=== PATIENT | female | born 1945 | race Hispanic/Latino ===

== ENCOUNTER 2017-02-21 09:58 | Emergency (ER) | payer OTHER ==
[2017-02-21 10:10] VITALS: BMI 33.5
[2017-02-21] MEDS ORDERED: DiphenhydrAMINE 50 mg/ml Inj IVP STA (10:43)
[2017-02-21] MEDS ORDERED: MethylPREDNISolone 40 mg Vial IV STA (10:43)
--- NOTE | 2017-02-21 11:03 | ED PDOC ---
Arrival/HPI - General Chief Complaint: Allergic Reaction Time Seen by Provider: 02/21/17 10:27 Historian: Patient - History of Present Illness Narrative History of Present Illness (Text): 02/21/17 11:00 71 yo F w/ pmh of HTN and hypothyroidism reports 3 day h/o red itchy rash, which was initially only in her legs, took a dose of Claritin last night, woke up this morning and developed rash to her upper extremities and her trunk. patient reports receiving the flu shot on February 10, the following day she developed flu-like symptoms without fever for 2 days, which has since resolved, then developed the rash. Patient states in February 2015, after receiving the flu vaccine she had similar rash. Otherwise patient reports (-) throat swelling , (-) tongue / lip swelling, (-) dyspnea, (-) cough, (-) wheezing, (-) abdominal pain, (-) nausea (-) vomiting. The patient has no history of other allergic reactions. PMD Rory Past Medical History - Provider Review Nursing Documentation Reviewed: Yes - Infectious Disease Hx of Infectious Diseases: None - Tetanus Immunization Tetanus Immunization: Unknown - Cardiac Hx Cardiac Disorders: Yes Hx Hypertension: Yes Hx Pacemaker: No - Pulmonary Hx Respiratory Disorders: No - Neurological Hx Neurological Disorder: No Hx Paralysis: No - HEENT Hx HEENT Disorder: No - Renal Hx Renal Disorder: No - Endocrine/Metabolic Hx Endocrine Disorders: Yes Hx Hypothyroidism: Yes - Hematological/Oncological Hx Blood Disorders: Yes Hx Blood Transfusions: No Hx Blood Transfusion Reaction: No Hx Cancer: Yes (right breast.) Other/Comment: radiation - Integumentary Hx Dermatological Disorder: No - Musculoskeletal/Rheumatological Hx Musculoskeletal Disorders: Yes Hx Back Pain: Yes - Gastrointestinal Hx Gastrointestinal Disorders: Yes Hx Gastroesophageal Reflux: Yes - Genitourinary/Gynecological Hx Genitourinary Disorders: No - Psychiatric Hx Psychophysiologic Disorder: Yes Hx Depression: Yes Hx Emotional Abuse: No Hx Physical Abuse: No Hx Substance Use: No - Surgical History Hx Cholecystectomy: Yes Other/Comment: Lumpectomy right breast, - Anesthesia Hx Anesthesia: Yes Hx Anesthesia Reactions: Yes Hx Malignant Hyperthermia: No - Suicidal Assessment Feels Threatened In Home Enviroment: No Family/Social History - Physician Review Nursing Documentation Reviewed: Yes Family/Social History: Unknown Family HX Smoking Status: Never Smoked Hx Alcohol Use: No Hx Substance Use: No Hx Substance Use Treatment: No Allergies/Home Meds Allergies/Adverse Reactions: Allergies Penicillins Allergy (Mild, Verified 02/21/17 10:10) RASH Home Medications: Home Meds Medication Instructions Recorded Confirmed Lisinopril 10 mg PO DAILY 04/10/13 02/21/17 Levothyroxine Sodium [Synthroid] 20 mcg PO QAM 07/25/14 02/21/17 Multivitamin and Npxumlna08 1 tab PO DAILY 09/26/14 02/21/17 [Centrum Silver] Escitalopram [Lexapro] 10 mg PO DAILY 02/21/17 02/21/17 Gluc/Alex-MSM#2/C/D3/Abdoulaye/Born 1 tab PO DAILY 02/21/17 02/21/17 [Idwbmitnif-Geudeajtktd-APL Tab] Review of Systems - Review of Systems Constitutional: Normal. absent: Fatigue, Weight Change, Fevers ENT: Normal. absent: Sore Throat, Rhinorrhea, Sinus Congestion Respiratory: Normal. absent: SOB, Cough, Sputum Musculoskeletal: Normal. absent: Arthralgias, Back Pain, Neck Pain Skin: Normal, Rash. absent: Pruritis, Skin Lesions Physical Exam - Physical Exam Narrative Physical Exam (Text): 02/21/17 11:05 GENERAL APPEARANCE: Patient is awake, alert, oriented x 3, in no acute distress. SKIN: (+) diffuse scattered erythematous papular rash to the trunk and all extremities sparing the palms and soles. Otherwise (-) excoriations, (-) drainage, (-) crusting of lesions is present. HENT: (-) conjunctival injection, (-) chemosis. Oropharynx: clear (-) tongue or lip swelling, (-) tonsillar exudates, (-) erythema. Airway: patent (-) stridor, (-) hoarseness. Mucous membranes moist. Nares: Patent (-) rhinorrhea. NECK: (-) lymphadenopathy, (-) tenderness. CARDIOVASCULAR: Normal rate and rhythm. (-) murmur, (-) gallop. CHEST: (-) rales, (-) wheezing, (-) dyspnea, (-) stridor. Breath sounds equal bilaterally. ABDOMEN: Soft. (-) tenderness, (-) distention, (-) HSM. NEURO: Mental status: Patient is alert, oriented, and with normal strength and tone. Vital Signs Temp Pulse Resp BP Pulse Ox 02/21/17 13:07 98 F 74 19 127/82 100 02/21/17 13:00 98 F 75 20 118/75 100 02/21/17 12:26 75 18 138/75 96 02/21/17 11:01 78 18 143/79 96 02/21/17 10:14 98.2 F 82 18 145/89 96 Medical Decision Making ED Course and Treatment: 02/21/17 11:04 71 yo F w/ pmh of HTN and hypothyroidism reports 3 day h/o red itchy rash, which was initially only in her legs, took a dose of Claritin last night, woke up this morning and developed rash to her upper extremities and her trunk. Plan : - Labs - IV - IV solumedrol - IV benadryl - IV pepcid On reevaluation, patient reports improvement of her rash, denies shortness of breath, has no additional complaints. On exam, patient is breathing easily and unlabored, skin exam shows improvement of rash. Lungs are clear to auscultation. Patient instructed to follow up with primary care physician in 1- 2 days without fail. Advised to take medication as prescribed. Return to the emergency room at any time for any new or worsening symptoms. Patient states she fully agrees with and understands discharge instructions. States that she agrees with the plan and disposition. Verbalized and repeated discharge instructions and plan. I have given the patient opportunity to ask any additional questions. - Lab Interpretations Lab Results: 02/21/17 10:30 02/21/17 10:30 Lab Results 02/21/17 10:30: Sodium 142, Potassium 4.1, Chloride 103, Carbon Dioxide 26, Anion Gap 17, BUN 21, Creatinine 0.8, Est GFR ( Amer) > 60, Est GFR (Non- Af Amer) > 60, Random Glucose 100, Calcium 9.8, Total Bilirubin 0.6, AST 44 H, ALT 39, Alkaline Phosphatase 74, Total Protein 7.2, Albumin 4.6, Globulin 2.6, Albumin/Globulin Ratio 1.8 02/21/17 10:30: WBC 5.0, RBC 4.83, Hgb 15.5, Hct 44.8, MCV 92.8, MCH 32.1, MCHC 34.6, RDW 13.2, Plt Count 250, MPV 10.3, Gran % 67.8, Lymph % (Auto) 23.0, [place] % (Auto) 6.4 H, Eos % (Auto) 2.2, Baso % (Auto) 0.6, Gran # 3.39, Lymph # 1.2, [place] # 0.3, Eos # 0.1, Baso # 0.03 - Medication Orders Current Medication Orders: Discontinued Medications Diphenhydramine HCl (Benadryl) 50 mg IVP STAT STA Stop: 02/21/17 10:44 Last Admin: 02/21/17 11:00 Dose: 50 mg IVP Administration Document 02/21/17 11:00 AD (Rec: 02/21/17 11:02 AD [id number]) Charges for Administration # of IVP Administrations 1 Famotidine (Pepcid) 20 mg IVP STAT STA Stop: 02/21/17 10:45 Last Admin: 02/21/17 11:02 Dose: 20 mg IVP Administration Document 02/21/17 11:02 AD (Rec: 02/21/17 11:02 AD [id number]) Charges for Administration # of IVP Administrations 1 Methylprednisolone (Solu-Medrol) 125 mg IV STAT STA Stop: 02/21/17 10:47 Last Admin: 02/21/17 11:02 Dose: 125 mg eMAR Start Stop Document 02/21/17 11:02 AD (Rec: 02/21/17 11:03 AD [id number]) Intravenous Solution Start Date 02/21/17 Start Time 11:02 - PA / [employer] / Resident Statement MD/DO has reviewed & agrees with the documentation as recorded. Disposition/Present on Arrival - Present on Arrival Any Indicators Present on Arrival: No History of DVT/PE: No History of Uncontrolled Diabetes: No Urinary Catheter: No History of Decub. Ulcer: No History Surgical Site Infection Following: None - Disposition Have Diagnosis and Disposition been Completed?: Yes Diagnosis: Allergic reaction Disposition: HOME/ ROUTINE Disposition Time: 12:45 Patient Plan: Discharge Condition: IMPROVED Discharge Instructions (ExitCare): General Allergic Reaction (ED) Print Language: [place] Additional Instructions: Thank you for letting us take care of you today. You were treated for allergic reaction. The emergency medical care you received today was directed at your acute symptoms. If you were prescribed any medication, please fill it and take as directed. It may take several days for your symptoms to resolve. Return to the Emergency Department if your symptoms worsen, do not improve, or if you have any other problems. Please contact your doctor in 2 days for re-evaluation and follow up. Bring any paperwork you were given at discharge with you along with any medications you are taking to your follow up visit. Our treatment cannot replace ongoing medical care by a primary care provider (PCP) outside of the emergency department. Thank you for allowing the [facility] team to be part of your care today. Prescriptions: Famotidine [Pepcid] 40 mg PO DAILY #20 tablet predniSONE [predniSONE Tab] 40 mg PO DAILY #8 tab Referrals: Heidi Valadez MD [Primary Care Provider] - Follow up with primary Forms: [employer] (Frisian), WORK NOTE
[2017-02-21 11:07] LABS: ALB/GLOB RATIO 1.8 (1.1-1.8); ALKALINE PHOSPHATASE 74 U/L (38-126); ALT/SGPT 39 U/L (7-56); AST/SGOT 44 U/L (14-36); BILIRUBIN,TOTAL 0.6 mg/dL (0.2-1.3); BLOOD UREA NITROGEN 21 mg/dL (7-21); CALCIUM 9.8 mg/dL (8.4-10.5); CARBON DIOXIDE 26 mmol/L (21-33); CHLORIDE 103 mmol/L (98-107); GFR AFRICAN-AMERICAN > 60; GLUCOSE,RANDOM 100 mg/dL (70-110); POTASSIUM 4.1 mmol/L (3.6-5.0); SODIUM 142 mmol/L (132-148); TOTAL PROTEIN 7.2 g/dL (5.8-8.3)
[2017-02-21 12:13] LABS: BASO # 0.03 K/mm3 (0.0-2.0); BASO % 0.6 % (0.0-3.0); EOS # 0.1 (0.0-0.7); EOS % 2.2 % (1.5-5.0); GRAN # 3.39 (1.4-6.5); GRAN % 67.8 % (50.0-68.0); HEMATOCRIT 44.8 % (36.0-48.0); LYMPH # 1.2 (1.2-3.4); MEAN CELL VOLUME 92.8 fl (80.0-105.0); MEAN CORPUSCULAR HEMOGLOBIN 32.1 pg (25.0-35.0); MEAN CORPUSCULAR HGB CONC 34.6 g/dl (31.0-37.0); MEAN PLATELET VOLUME 10.3 fl (7.0-11.0); MONO # 0.3 (0.1-0.6); MONO % 6.4 % (1.0-6.0); RED CELL DISTRIBUTION WIDTH 13.2 % (11.5-14.5)
[2017-02-21 13:06] VITALS: TEMP 98; O2SAT 100
[2017-02-21 13:09] VITALS: BP 127/82; PULSE 74; RESP 19
== END 2017-02-21 13:11 | disposition home or self-care (01) ==
LOC: ED 09:58
DX: T78.40XA Allergy, unspecified, initial encounter (principal); X58.XXXA Exposure to other specified factors, initial encounter
CPT/HCPCS: 80053; 85025; 96374; 96375; 99285; J1200; J2930

== ENCOUNTER 2017-06-08 08:44 | Observation (INO) | payer OTHER ==
--- NOTE | 2017-06-08 09:30 | ED PDOC ---
Arrival/HPI - General Chief Complaint: Shortness Of Breath Time Seen by Provider: 06/08/17 09:15 Historian: Patient - History of Present Illness Narrative History of Present Illness (Text): 06/08/17 09:27 72-year-old female presents today with a 2 week history of dyspnea on exertion. Patient states for the past 2 weeks she feels that she is getting short of breath while walking from the parking garage into work. Patient states she hasn' t been doing much at home because she is been getting progressively short of breath with exertion. She denies chest pain. Patient states today she has a strange feeling of shortness of breath while at rest. She denies fevers or chills. Denies URI symptoms. Denies headache dizziness or weakness. Patient states last week she fell injuring her left ankle. Patient complains of occasional pain in the calves. She denies urinary symptoms. Denies sick contacts. No other complaints. Time/Duration: > week Symptom Onset: Gradual Symptom Course: Worsening Quality: Other (no pain) Past Medical History - Provider Review Nursing Documentation Reviewed: Yes - Travel History Have you recently traveled outside [place] w/in the past 3 mons?: No - Infectious Disease Hx of Infectious Diseases: None - Tetanus Immunization Tetanus Immunization: Unknown - Reproductive Menopause: Yes - Cardiac Hx Cardiac Disorders: Yes Hx Hypertension: Yes Hx Pacemaker: No - Pulmonary Hx Respiratory Disorders: No - Neurological Hx Neurological Disorder: No Hx Paralysis: No - HEENT Hx HEENT Disorder: No - Renal Hx Renal Disorder: No - Endocrine/Metabolic Hx Endocrine Disorders: Yes Hx Hypothyroidism: Yes - Hematological/Oncological Hx Blood Disorders: No - Integumentary Hx Dermatological Disorder: No - Musculoskeletal/Rheumatological Hx Musculoskeletal Disorders: Yes Hx Back Pain: Yes - Gastrointestinal Hx Gastrointestinal Disorders: Yes Hx Gastroesophageal Reflux: Yes - Genitourinary/Gynecological Hx Genitourinary Disorders: No - Psychiatric Hx Psychophysiologic Disorder: No Hx Substance Use: No - Surgical History Hx Cholecystectomy: Yes Other/Comment: Lumpectomy right breast, - Anesthesia Hx Anesthesia: Yes Hx Anesthesia Reactions: Yes Hx Malignant Hyperthermia: No - Suicidal Assessment Feels Threatened In Home Enviroment: No Family/Social History - Physician Review Nursing Documentation Reviewed: Yes Family/Social History: Unknown Family HX Smoking Status: Never Smoked Hx Alcohol Use: Yes Frequency of alcohol use: Socially Hx Substance Use: No Hx Substance Use Treatment: No Allergies/Home Meds Allergies/Adverse Reactions: Allergies Penicillins Allergy (Mild, Verified 02/21/17 10:10) RASH Home Medications: Home Meds Medication Instructions Recorded Confirmed Escitalopram [Lexapro] 10 mg PO DAILY 02/21/17 06/08/17 Gluc/Alex-MSM#2/C/D3/Abdoulaye/Born 1 tab PO DAILY 02/21/17 06/08/17 [Icldvgtgnv-Nevdtpgneyz-XZJ Tab] Levothyroxine [Synthroid] 0 mg PO DAILY 06/08/17 06/08/17 Lisinopril [Zestril] 10 mg PO DAILY 06/08/17 06/08/17 Multivit-Min/FA/Lycopen/Lutein 1 each PO DAILY 06/08/17 06/08/17 [Centrum Silver Tablet] Review of Systems - Review of Systems Constitutional: absent: Fatigue, Fevers Respiratory: SOB, Cough (dry). absent: Wheezing Cardiovascular: absent: Chest Pain, Palpitations Gastrointestinal: absent: Abdominal Pain, Nausea, Vomiting Genitourinary Female: absent: Dysuria Musculoskeletal: Arthralgias (left ankle injury 1 week ago) Skin: absent: Rash, Pruritis Neurological: absent: Headache, Dizziness Psychiatric: absent: Anxiety, Depression, Suicidal Ideation Physical Exam Vital Signs Reviewed: Yes Vital Signs Temp Pulse Resp BP Pulse Ox 06/08/17 14:24 70 17 150/81 97 06/08/17 12:25 78 18 155/82 H 98 06/08/17 11:06 67 18 153/83 H 95 06/08/17 09:03 98.2 F 74 18 157/85 H 96 06/08/17 09:00 18 94 L Temperature: Afebrile Blood Pressure: Hypertensive Pulse: Regular Respiratory Rate: Normal Appearance: Positive for: Well-Appearing, Non-Toxic, Comfortable Pain Distress: None Mental Status: Positive for: Alert and Oriented X 3 - Systems Exam Head: Present: Atraumatic Conjunctiva: Present: Normal Ears: Present: Normal Mouth: Present: Moist Mucous Membranes Pharnyx: Present: Normal. No: ERYTHEMA, EXUDATE Nose (External): Present: Atraumatic Nose (Internal): Present: Normal Inspection Neck: Present: Normal Range of Motion Respiratory/Chest: Present: Clear to Auscultation, Good Air Exchange. No: Respiratory Distress, Accessory Muscle Use Cardiovascular: Present: Regular Rate and Rhythm, Normal S1, S2. No: Murmurs Abdomen: No: Tenderness, Rebound, Guarding Back: Present: Normal Inspection Upper Extremity: Present: Normal ROM Lower Extremity: Present: Normal ROM, Tenderness (left ankle; minimal swelling and tenderness noted over the medial aspect of right ankle just proximal to the medial malleolus.), Swelling, Capillary Refill < 2 s. No: Erythema Neurological: Present: GCS=15, Speech Normal Skin: Present: Warm, Dry, Normal Color. No: Rashes Psychiatric: Present: Alert, Oriented x 3 Medical Decision Making ED Course and Treatment: 06/08/17 09:56 pt with 2 week hx of sob. cbc; wnl cmp; wnl trop: wnl ekg; normal sinus rhythm at 76 bpm left axis deviation and right bundle branch block QTc 488 cxr: wnl d-dimer; elevated CT angio; FINDINGS: PULMONARY ARTERIES: Unremarkable. No pulmonary embolism. AORTA: No acute findings. No thoracic aortic aneurysm. LUNGS: Dependent atelectasis posterior lower lobe bilaterally. No infiltrate. PLEURAL SPACES: Unremarkable. No effusion or pneuomothorax. HEART: Unremarkable. No cardiomegaly. No significant pericardial effusion. LYMPH NODES: No lymphadenopathy. BONES, CHEST WALL: Unremarkable. No fracture or destructive lesion OTHER FINDINGS: Unremarkable. IMPRESSION: No evidence of pulmonary embolism. No pulmonary infiltrate or pleural effusion. duplex; lower legs; no DVT pt reassessment; pt c/o [place] on exertion; denies cp; pt was seen by , dr. mcfarland and dr. pina in er. case discussed with Dr. rojas will Admit observational status to Tele for Dyspnea on exertion. impression; dyspnea on exertion, elevated d-dimer Admit observational status to tele; - Lab Interpretations Lab Results: 06/08/17 09:15 06/08/17 09:15 Lab Results 06/08/17 10:00: PT 10.9, INR 0.95, APTT 26.6, D-Dimer, Quantitative 427 H 06/08/17 09:15: WBC 5.9, RBC 4.39, Hgb 14.2, Hct 41.4, MCV 94.3, MCH 32.3, MCHC 34.3, RDW 13.3, Plt Count 201, MPV 10.1, Gran % 64.7, Lymph % (Auto) 23.3, [place] % (Auto) 7.4 H, Eos % (Auto) 3.9, Baso % (Auto) 0.7, Gran # 3.84, Lymph # 1.4, [place] # 0.4, Eos # 0.2, Baso # 0.04 06/08/17 09:15: Sodium 141, Potassium 4.2, Chloride 104, Carbon Dioxide 26, Anion Gap 15, BUN 19, Creatinine 0.7, Est GFR ( Amer) > 60, Est GFR (Non- Af Amer) > 60, Random Glucose 88, Calcium 9.9, Total Bilirubin 0.4, AST 44 H, ALT 38, Alkaline Phosphatase 62, Lactate Dehydrogenase 516, Total Creatine Kinase 150, Troponin I < 0.01, NT-Pro-B Natriuret Pep 30.0, Total Protein 6.6, Albumin 4.3, Globulin 2.3, Albumin/Globulin Ratio 1.8 06/08/17 09:15: Urine Color Light yellow, Urine Appearance Clear, Urine pH 7.0, Ur Specific [place] 1.015, Urine Protein Negative, Urine Glucose (UA) Negative, Urine Ketones Negative, Urine Blood Negative, Urine Nitrate Negative, Urine Bilirubin Negative, Urine Urobilinogen 0.2, Ur Leukocyte Esterase Negative 06/08/17 09:15: Influenza Typ A,B (EIA) Negative for flu a/b - RAD Interpretation Radiology Orders: 06/08/17 09:24 CHEST PORTABLE [RAD] Stat 06/08/17 09:29 ANKLE LEFT 3 VIEWS ROUTINE [RAD] Stat 06/08/17 10:56 ANGIO CHEST PE PROTOCOL [CT] Stat 06/08/17 12:25 DUPLEX LOWER EXTRM VEIN BILAT [US] Stat - Medication Orders Current Medication Orders: Discontinued Medications Sodium Chloride (Sodium Chloride 0.9%) 500 mls @ 999 mls/hr IV .Q31M STA Stop: 06/08/17 11:27 Last Admin: 06/08/17 11:26 Dose: 999 mls/hr eMAR Start Stop Document 06/08/17 11:26 SF (Rec: 06/08/17 11:26 SF [facility] [place] [id number]) Intravenous Solution Start Date 06/08/17 Start Time 11:26 End Date 01/30/18 End time 11:58 Total Infusion Time 32 Disposition/Present on Arrival - Present on Arrival Any Indicators Present on Arrival: No History of DVT/PE: No History of Uncontrolled Diabetes: No Urinary Catheter: No History of Decub. Ulcer: No History Surgical Site Infection Following: None - Disposition Have Diagnosis and Disposition been Completed?: Yes Diagnosis: Dyspnea on exertion, Elevated d-dimer Disposition: HOSPITALIZED Disposition Time: 12:25 Patient Plan: Observation, Telemetry (remote) Condition: FAIR
[2017-06-08 09:47] LABS: BASO # 0.04 K/mm3 (0.0-2.0); BASO % 0.7 % (0.0-3.0); EOS # 0.2 (0.0-0.7); EOS % 3.9 % (1.5-5.0); GRAN # 3.84 (1.4-6.5); GRAN % 64.7 % (50.0-68.0); HEMOGLOBIN 14.2 g/dL (12.0-16.0); LYMPH # 1.4 (1.2-3.4); LYMPH % 23.3 % (22.0-35.0); MEAN CELL VOLUME 94.3 fl (80.0-105.0); MEAN CORPUSCULAR HEMOGLOBIN 32.3 pg (25.0-35.0); MEAN CORPUSCULAR HGB CONC 34.3 g/dl (31.0-37.0); MEAN PLATELET VOLUME 10.1 fl (7.0-11.0); MONO # 0.4 (0.1-0.6); MONO % 7.4 % (1.0-6.0); RBC 4.39 10^6/uL (3.5-6.1); RED CELL DISTRIBUTION WIDTH 13.3 % (11.5-14.5); WHITE BLOOD COUNT 5.9 10^3/ul (4.5-11.0)
[2017-06-08 09:51] LABS: ALB/GLOB RATIO 1.8 (1.1-1.8); ALBUMIN 4.3 g/dL (3.0-4.8); ALT/SGPT 38 U/L (7-56); AST/SGOT 44 U/L (14-36); BLOOD UREA NITROGEN 19 mg/dL (7-21); CALCIUM 9.9 mg/dL (8.4-10.5); GFR AFRICAN-AMERICAN > 60; GFR NON-AFRICAN AMERICAN > 60
[2017-06-08 09:54] LABS: URINE BILIRUBIN NEGATIVE (NEGATIVE); URINE BLOOD NEGATIVE (NEGATIVE); URINE GLUCOSE (UA) NEGATIVE (NEGATIVE); URINE LEUKOCYTE ESTERASE NEGATIVE Leu/uL (NEGATIVE); URINE NITRATE NEGATIVE (NEGATIVE); URINE PROTEIN NEGATIVE mg/dL (<30 mg/dL); URINE UROBILINOGEN 0.2 E.U./dL (<1 E.U./dL)
[2017-06-08 09:55] LABS: URINE APPEARANCE CLEAR (CLEAR); URINE COLOR LIGHT YELLOW (YELLOW)
[2017-06-08 10:02] LABS: TROPONIN I < 0.01 ng/mL
--- NOTE | 2017-06-08 10:29 | RAD ---
PROCEDURE: Left Ankle Radiographs. HISTORY: fall COMPARISON: None FINDINGS: BONES: Normal. No fracture. JOINTS: Normal. No osteoarthritis. Ankle mortise maintained. Talar dome intact SOFT TISSUES: Normal. OTHER FINDINGS: None. IMPRESSION: Normal left ankle radiographs.
--- NOTE | 2017-06-08 10:29 | RAD ---
HISTORY: SOB COMPARISON: 05/26/2019 FINDINGS: LUNGS: No active pulmonary disease. PLEURA: No significant pleural effusion identified, no pneumothorax apparent. CARDIOVASCULAR: Normal. OSSEOUS STRUCTURES: No significant abnormalities. VISUALIZED UPPER ABDOMEN: Normal. OTHER FINDINGS: None. IMPRESSION: No active disease.
[2017-06-08 10:51] LABS: INR 0.95 (0.93-1.08); PARTIAL THROMBOPLASTIN TIME 26.6 Seconds (25.1-36.5); PROTHROMBIN TIME 10.9 SECONDS (9.4-12.5)
[2017-06-08] MEDS ORDERED: Sodium Chloride 0.9% 500 ML IV STA (10:57)
[2017-06-08] MEDS ORDERED: Iodixanol 320 MG/ML 100 ML BOTTLE IV ONE (11:03)
--- NOTE | 2017-06-08 12:24 | CT ---
PROCEDURE: CT Chest with contrast (Pulmonary Angiogram) HISTORY: SOB COMPARISON: None available. TECHNIQUE: Axial computed tomography images were obtained of the chest in the pulmonary arterial phase of enhancement. Coronal and sagittal reformatted images were created and reviewed. Intravenous contrast dose: 100 mL Visipaque 320 Radiation dose: Total exam DLP = 452.61 mGy-cm. This CT exam was performed using one or more of the following dose reduction techniques: Automated exposure control, adjustment of the mA and/or kV according to patient size, and/or use of iterative reconstruction technique. FINDINGS: PULMONARY ARTERIES: Unremarkable. No pulmonary embolism. AORTA: No acute findings. No thoracic aortic aneurysm. LUNGS: Dependent atelectasis posterior lower lobe bilaterally. No infiltrate. PLEURAL SPACES: Unremarkable. No effusion or pneuomothorax. HEART: Unremarkable. No cardiomegaly. No significant pericardial effusion. LYMPH NODES: No lymphadenopathy. BONES, CHEST WALL: Unremarkable. No fracture or destructive lesion OTHER FINDINGS: Unremarkable. IMPRESSION: No evidence of pulmonary embolism. No pulmonary infiltrate or pleural effusion.
--- NOTE | 2017-06-08 12:24 | CARD ---
APPROVED REPORT EKG Measurement Heart [id number] <Conclusion> Normal sinus rhythm Left axis deviation Right bundle branch block Moderate voltage criteria for LVH, may be normal variant Abnormal ECG
--- NOTE | 2017-06-08 13:48 | CON ---
DATE: 06/08/2017 PULMONARY CONSULTATION REASON FOR CONSULTATION: Dyspnea on exertion. REFERRING PHYSICIAN: Dr. Valadez. HISTORY OF PRESENT ILLNESS: The patient is a 72-year-old female, with past medical history significant for hypertension, thyroid disease, mild obesity, who presents to [facility] with main complaint of shortness of breath on exertion for the past 2 weeks. There is no history of shortness of breath at rest. There is no history of cough or sputum production. There is no history of chest pain, coughing up of blood, or chest pain - made worse with deep respirations. There is no history of temperatures, chills or infectious exposure. There is no history of night sweats, weight loss or appetite change prior to the above events. No history of calf pains. No history of syncope or diaphoresis. No history of travel. The patient does state to a recent left ankle injury. REVIEW OF SYSTEMS: The patient does admit to snoring. She denies daytime somnolence. She has gained a little bit of weight over the past year. No history of nausea, vomiting, or diarrhea. No acute urinary symptoms. No new neurologic or musculoskeletal complaints. Rest of the review of systems is negative. ALLERGIES: PENICILLIN. SOCIAL HISTORY: Negative for tobacco and negative for alcohol. FAMILY HISTORY: No inheritable diseases. HOME MEDICATIONS: Include Synthroid, Zestril, Centrum, glucosamine, Lexapro. PHYSICAL EXAMINATION GENERAL: The patient appears comfortable at rest. She is not short of breath. VITAL SIGNS: Temperature is 98.2, pulse is 67, respirations 18, blood pressure 153/83. Oxygen saturation on room air is 95%-96%. HEENT: Normocephalic and atraumatic. No JVD. CARDIOVASCULAR: Positive S1 and S2. No S3 gallop. LUNGS: Clear bilaterally. EXTREMITIES: Mild edema. No cyanosis, no clubbing. Calves are nontender to palpation. GI: Abdomen is soft, nontender and nondistended. Bowel sounds are positive. SKIN: No acute rash. NEUROLOGIC: Limited at the present time. PERTINENT LABORATORY DATA: Chest x-ray was done and reviewed. There is no active disease present. CBC: White count 5.9, hemoglobin 14.2, hematocrit 41.4, platelets of 201,000. Complete metabolic profile: AST 44. Rest of the metabolic profiles within normal limits. IMPRESSION: 1. Dyspnea on exertion. 2. Hypertension. 3. Mild obesity, rule out obstructive sleep apnea. 4. Thyroid disease. PLAN: The patient presents to [facility] with main complaint of dyspnea on exertion for the past 2 weeks. She offers no other pulmonary complaints, and feels well overall. I did review the chest x-ray as above. The chest x-ray shows no active disease. I have also reviewed the laboratory data. There is no leukocytosis noted. A D-dimer has been sent, and I will check that when feasible. I did discuss the case with Dr. Valadez at length. A cardiology evaluation will be called. During their evaluation, I am hoping an echocardiogram will be done - so I can check the right ventricular systolic pressure. In addition, the patient should receive a polysomnogram as an outpatient. She is very well aware that she can(and should) follow up with me in the office. Additional pulmonary intervention will be based on the above results, as well as the clinical status of the patient. Again, I did discuss the above with Dr. Valadez at length. Thank you very much for this pulmonary consultation. Michael Black MD MERRY
--- NOTE | 2017-06-08 15:39 | US ---
HISTORY: Leg pain and swelling. Evaluate for DVT PHYSICIAN(S): Cristian Clemente MD. TECHNIQUE: Duplex sonography and color-flow Doppler with graded compression were used to evaluate the deep venous systems of both lower extremities. FINDINGS: The visualized deep venous systems of both lower extremities are sonographically normal and compressible. Normal wave forms and augmentation are seen. There is no sonographic evidence for deep venous thrombosis in the visualized segments of both lower extremities. IMPRESSION: No sonographic evidence for deep venous thrombosis in the visualized segments of both lower extremities.
[2017-06-08 20:45] LABS: T3 UPTAKE 26.9 % (23.0-41.0)
[2017-06-08 20:58] LABS: T4 7.5 ug/dL (5.5-11.0)
[2017-06-08 23:08] VITALS: BMI 35.1
[2017-06-08] MEDS ORDERED: Pneumococcal 23-Valent Vaccine IM ONE (23:08)
[2017-06-08] MEDS ORDERED: Influenza Vaccine 60 mcg/0.5 mL SYR (4YR UP) IM ONE (23:08)
--- NOTE | 2017-06-09 01:17 | HP ---
HISTORY OF PRESENT ILLNESS: This 72-year-old female presents to the Emergency Room who is being referred with a history of at least 2 weeks of exertional dyspnea. She denies any chest pain, cough, fever or chills. She states that approximately 2 weeks ago, she sustained a fall injuring her left ankle and that she has been feeling just out of sorts, malaise, and with least amount of exertion. She feels that she is short of breath. PAST MEDICAL HISTORY: The patient has a past medical history of breast cancer, hypothyroid disease, hypertension, and depression. ALLERGIES: PENICILLIN. HOME MEDICATIONS: Consist of Synthroid, Zestril, multivitamin, and Lexapro. REVIEW OF SYSTEMS: Ten systems are reviewed. Pertinent findings are that the patient complains that she has got dyspnea with minimal exertion and she has been feeling a bit, she uses the term malaise. SOCIAL HISTORY: She is a nonsmoker, nondrinker, nondrug user. PHYSICAL EXAMINATION: VITAL SIGNS: Show a temperature of 98.7, pulse is 65, blood pressure is 145/70, respiratory rate is 18, oxygen saturation is 97% on room air. NECK: Supple. LUNGS: Clear. HEART: S1 and S2 rhythm. ABDOMEN: Soft with positive bowel sounds. EXTREMITIES: Show no evidence of edema. LABORATORY DATA: Showed a WBC of 5.9, RBC of 4.39, hemoglobin 14.3, hematocrit 41.4, platelet count 201. Coags: The PT is 10.9 with an INR of 0.95, PTT is 26.6. D-dimer is 427. Chemistry shows normal electrolytes, BUN is 19 and creatinine is 0.7. AST is 44, ALT is 38, troponin is less than 0.01. Urinalysis is clear. Influenza type A and B is negative. An EKG was reportedly showing a sinus rhythm with a right bundle branch block. The patient states that she had this before. A chest x-ray reported no active disease. A CT angiogram was reported as showing no evidence of pulmonary embolus and an ultrasound of the lower extremities to rule out DVT was reported that has been negative. IMPRESSION AND PLAN: We will request a Pulmonary and Cardiology consult in a 72-year-old female with history of exertional dyspnea. Heidi Valadez MD [facility] # [id number]
--- NOTE | 2017-06-09 01:29 | CON ---
DATE: 06/08/2017 CARDIOLOGY CONSULTATION HISTORY OF PRESENT ILLNESS: The patient was seen in the emergency room for 2 weeks of progressive exertional shortness of breath. Patient's past medical history is free of cardiac disease. No shortness of breath. No chest pain. She underwent CT scan, which showed no pulmonary embolism. Her laboratories revealed a right bundle-branch block with a negative troponin. The patient is comfortable. PHYSICAL EXAMINATION: VITAL SIGNS: Stable. NECK: Negative JVD. LUNGS: Without rales. HEART: With S1, S2 with A 2/6 systolic ejection murmur. EXTREMITIES: Without edema. EKG shows right bundle-branch block. Negative troponins. IMPRESSION: Exertional shortness of breath, which is over the past 2 weeks. There is no evidence for acute coronary syndrome. Given these findings, the patient can be discharged to the ER. We will arrange for an outpatient stress test and echocardiogram, which the patient is agreeable. Cristian Vu MD
[2017-06-09 02:31] VITALS: RESP 18
[2017-06-09] MEDS ORDERED: Levothyroxine 50 MCG TAB PO SCH (07:30)
--- NOTE | 2017-06-09 08:34 | PN ---
DATE: 06/09/2017 PULMONARY PROGRESS NOTE SUBJECTIVE: The patient appears very comfortable this morning. She is not short of breath at rest. PHYSICAL EXAMINATION: VITAL SIGNS: Temperature is 98.1, pulse is 74, respirations are 18, and blood pressure is 120/56. Oxygen saturation on room air ranges between 92%-99%. HEENT: Normocephalic and atraumatic. NECK: No JVD. CARDIOVASCULAR: Positive S1 and S2. No S3 gallop. LUNGS: Clear bilaterally. EXTREMITIES: Mild edema. No cyanosis and no clubbing. Calves are nontender to palpation. GASTROINTESTINAL: Abdomen is soft, nontender and nondistended. Bowel sounds are positive. SKIN: No acute rash. NEUROLOGIC: Exam is limited at the present time. PERTINENT LABORATORY DATA: CAT scan of the chest was done yesterday as an angiogram protocol. There is no evidence of pulmonary embolism. There are no acute infiltrates or pleural effusions. There is no mass, nodule or adenopathy noted. IMPRESSION: 1. Dyspnea on exertion. 2. Hypertension. 3. Mild obesity, rule out obstructive sleep apnea. 4. Thyroid disease. PLAN: 1. The patient appears very comfortable this morning. She is not short of breath at rest. She does state to feeling better overall. On physical exam, her lungs remain clear. In addition, there is no significant alveolar-arterial gradient. 2. I did review the CT scan of the chest - done as an angiogram protocol. There are no new or significant findings noted. Echocardiogram was also done. We are awaiting the results. I am particularly interested in the right ventricular systolic pressure. In addition, the patient was reminded today that she will need a sleep study - as an outpatient. She fully agrees. Additional Cardiology evaluation will be as per Dr. Vu. His input is noted. I will discuss the above with Dr. Valadez. Michael Black MD [facility]
--- NOTE | 2017-06-09 09:34 | CARD ---
APPROVED REPORT EXAM: Two-dimensional and M-mode echocardiogram with Doppler and color Doppler. INDICATION Pulmonary Hypertention 2D DIMENSIONS Left Atrium (2D)4.1 (1.6-4.0cm)IVSd1.0 (0.7-1.1cm) LVDd3.7 (3.9-5.9cm)PWd1.1 (0.7-1.1cm) LVDs2.5 (2.5-4.0cm)FS (%) 34.3 % LVEF (%)64.2 (>50%) M-Mode DIMENSIONS Aortic Root3.00 (2.2-3.7cm)Aortic Cusp Exc.1.60 (1.5-2.0cm) Aortic Valve AoV Peak Wadzqdsv789.0cm/Dari Peak GR.18mmHgLVOT Peak Ubcglfuw609.0cm/s LVOT VTI34.60cmAI P 1/2 [id number] Mitral Valve MV E Mwtyzvrf24.8cm/sMV A Xvbgdcmx247.0cm/sE/A ratio0.7 TDI Lateral E' Peak V7.80cm/sMedial E' Peak V8.38cm/sE/Lateral E'9.6 E/Medial E'8.9 Pulmonary Valve PV Peak Tugintbr12.3cm/sPV Peak Grad.3mmHg Tricuspid Valve TR Peak Ahnvwqya163oi/sRAP YBBOFBBH06xvNdZO Peak Gr.24mmHg HTHY01nqGs LEFT VENTRICLE The left ventricular function is normal. The left ventricular ejection fraction is within the normal range. RIGHT VENTRICLE The right ventricle is normal size. ATRIA The left atrium is mildly dilated. The right atrium size is normal. AORTIC VALVE The aortic valve is thickened but opens well. There is trace aortic regurgitation. MITRAL VALVE The mitral valve is thickened but opens well. Mitral regurgitation is mild. TRICUSPID VALVE The tricuspid valve leaflets are thickened , but open well. There is trace to mild tricuspid regurgitation. There is no pulmonary hypertension. PULMONIC VALVE The pulmonic valve is mildly thickened. PERICARDIAL EFFUSION There is no pericardial effusion. <Conclusion> Good LV function Mildly dilated LA Mild MR and TR Trace AI No pulmonary hypertension
--- NOTE | 2017-06-09 10:30 | PN ---
DATE: 06/09/2017 CARDIOLOGY FOLLOWUP SUBJECTIVE: The patient is without shortness of breath. PHYSICAL EXAMINATION VITAL SIGNS: Stable. NECK: Negative JVD. LUNGS: Without rales. HEART: S1 and S2. EXTREMITIES: Without edema. LABORATORY DATA: Revealed an echocardiogram that reveals good LV function. No pulmonary hypertension noted. Stress test reveals no ischemia. The patient has reasonable exercise tolerance. IMPRESSION AND PLAN: 1. Dyspnea. 2. Mild hypertension. 3. Mild dilated left atrium. 4. The patient is deconditioned. Given these findings, there is no overt cardiac issues. We will discontinue telemetry today. From a cardiac perspective, the patient can be discharged. I have discussed with the patient about the need to change her sedentary lifestyle and begin an exercise program. Cristian Vu MD
--- NOTE | 2017-06-09 11:58 | CP.PCM.CON ---
Addendum entered and electronically signed by Rosmery Perez DO 06/09/17 13:39 : Maintain SBP 120-130 Original Note: <ChrisRosmery - Last Filed: 06/09/17 13:21> History of Present Illness - History of Present Illness History of Present Illness: PGY-[address] Whiting Consult: Dizziness Ping [place], 72F c/o 2 week history of dyspnea on exertion. Patient states for the past 2 weeks she feels that she is getting short of breath while walking from the parking garage into work. Patient states she hasn't been doing much at home because she is been getting progressively short of breath with exertion. She denies chest pain. Patient states today she has a strange feeling of shortness of breath while at rest. Patient states last week she fell injuring her left ankle. Patient complains of occasional pain in the calves. Pt felt lightheaded this morning as she changes position, no room spinning, no change of vision. Her BP was 173/87 at 11AM. It was 120/56 at 6am ROS - (+) excessive day time sleepiness (+) snoring (+) SOB on exertion Denies fevers or chills. Denies headache dizziness or weakness. Denies CP, N/V/D /C, urinary symptoms. Denies sick contacts. cbc, Cmp, trop wnl on admission ekg: normal sinus rhythm at 76 bpm left axis deviation and right bundle branch block QTc 488 cxr: wnl CTA has ruled out PE Echocardiogram reveals good LV function. No pulmonary hypertension. PMH: HTN Hypothyroidism GERD Back pain Hx Breast cancer Depression PSH: Lumpectomy R breast FH: Brother had brain tumor, diseased at age 50s SH: Never smoke. Denies ETOH and drugs All: Penicillin Meds: synthroid, zestril, multivit, lexapro Past Patient History - Infectious Disease Hx of Infectious Diseases: None - Tetanus Immunizations Tetanus Immunization: Unknown - Past Social History Smoking Status: Never Smoked - CARDIAC Hx Cardiac Disorders: Yes Hx Hypertension: Yes Hx Pacemaker: No - PULMONARY Hx Respiratory Disorders: Yes (2ND HAND SMOKE) - NEUROLOGICAL Hx Neurological Disorder: Yes Hx Dizziness: Yes (VERTIGO) - HEENT Hx HEENT Problems: No - RENAL Hx Chronic Kidney Disease: No - ENDOCRINE/METABOLIC Hx Endocrine Disorders: Yes Hx Hypothyroidism: Yes - HEMATOLOGICAL/ONCOLOGICAL Hx Blood Disorders: Yes (RIGHT BREAST CA WITH LUMPECTOMY-HAD RADIATION X 30 ROUNDS.) - INTEGUMENTARY Hx Dermatological Problems: No - MUSCULOSKELETAL/RHEUMATOLOGICAL Hx Musculoskeletal Disorders: Yes (MENISCAL TEAR,LUMBAR RADICULOPATHY) Hx Back Pain: Yes Hx Falls: Yes (fell last week,in the snow.Slipped and fell.) - GASTROINTESTINAL Hx Gastrointestinal Disorders: Yes Hx Gall Bladder Disease: Yes (CHOLECYSTECTOMY) Hx Gastroesophageal Reflux: Yes - GENITOURINARY/GYNECOLOGICAL Hx Genitourinary Disorders: No - PSYCHIATRIC Hx Psychophysiologic Disorder: Yes Hx Anxiety: Yes Hx Depression: Yes Hx Substance Use: No - SURGICAL HISTORY Hx Surgeries: Yes Hx Cholecystectomy: Yes Other/Comment: Lumpectomy right breast, - ANESTHESIA Hx Anesthesia: Yes Hx Anesthesia Reactions: Yes Hx Malignant Hyperthermia: No Meds Home Medications: Home Medication List Medication Instructions Recorded Confirmed Type Aspirin [Ecotrin] 81 mg PO DAILY tabec 06/09/17 Rx Allergies/Adverse Reactions: Allergies Allergy/AdvReac Type Severity Reaction Status Date / Time Penicillins Allergy Mild RASH Verified 06/08/17 22:22 - Medications Medications: Current Medications Escitalopram Oxalate (Lexapro) 10 mg PO DAILY [facility] Levothyroxine Sodium (Synthroid) 50 mcg PO ACB [facility] Last Admin: 06/09/17 11:18 Dose: 50 mcg Lisinopril (Zestril) 10 mg PO DAILY [facility] Last Admin: 06/09/17 11:17 Dose: 10 mg Physical Exam - Constitutional Appears: Well - Head Exam Head Exam: ATRAUMATIC, NORMAL INSPECTION, NORMOCEPHALIC - Eye Exam Eye Exam: EOMI, Normal appearance, PERRL Pupil Exam: NORMAL ACCOMODATION, PERRL - ENT Exam ENT Exam: Mucous Membranes Moist, Normal Exam - Neck Exam Additional comments: supple - Respiratory Exam Respiratory Exam: Clear to Auscultation Bilateral, NORMAL BREATHING PATTERN - Cardiovascular Exam Cardiovascular Exam: REGULAR RHYTHM, +S1, +S2. absent: Systolic Murmur - Extremities Exam Extremities exam: Positive for: pedal pulses present. Negative for: calf tenderness, pedal edema - Neurological Exam Neurological exam: Alert, CN II-XII Intact, Oriented x3, Reflexes Normal Additional comments: Speech: fluent. no aphasia Motor: 5/5 all 4 extremities Sensory: intact [id number] coordination: intact rapid alternating movement: intact sit up to stand test: < 5 seconds. No lightheadedness reflex: 2/4 throughout - Psychiatric Exam Psychiatric exam: Normal Affect, Normal Mood - Skin Skin Exam: Dry, Warm Results - Vital Signs Recent Vital Signs: Last Vital Signs Temp 98.1 F 06/09/17 06:00 Pulse 74 06/09/17 06:00 Resp 18 06/09/17 06:00 BP 173/87 H 06/09/17 11:17 Pulse Ox 92 L 06/09/17 06:00 - Labs Result Diagrams: 06/08/17 09:15 06/08/17 09:15 Assessment & Plan - Assessment and Plan (Free Text) Plan: Consult: Dizziness Ping [place], 72F c/o 2 week history of dyspnea on exertion. Pt felt lightheaded this morning as she changes position, no room spinning, no change of vision. Her BP was 173/87 at 11AM. It was 120/56 at 6am. ROS is significant for (+) excessive day time sleepiness (+) snoring (+) SOB on exertion. Family history is significant for brain tumor < 60 years of age. EKG showed normal sinus rhythm at 76 bpm left axis deviation and right bundle branch block. CTA has ruled out PE. Echocardiogram reveals good LV function. No pulmonary hypertension. Physical exam was negative for neural deficit. Lightheadedness - resolved likely due to (1) transient cerebral hypoperfusion from fluctuation of blood pressure >50mmHg, (2) dyspnea on exertion leading to hyperventilation Family history of brain tumor - Add ASA 81 daily for stroke prevention - Maintain hydration throughout the day - No sudden movement; change position slowly; fall precaution counseling program leader - Pending CT head and follow up result outpatient - Pending orthostatic VS - Outpatient sleep study - follow up with neurology outpatient - pt is neurologically stable to be discharged home s/d/r/w Dr. Whiting <Jack Whiting - Last Filed: 06/10/17 12:07> Results - Vital Signs Recent Vital Signs: Last Vital Signs Temp 97.8 F 06/09/17 12:00 Pulse 79 06/09/17 12:00 Resp 18 06/09/17 12:00 BP 156/99 H 06/09/17 12:00 Pulse Ox 96 06/09/17 12:00 - Labs Result Diagrams: 06/08/17 09:15 06/08/17 09:15 Attending/Attestation - Attestation I have personally seen and examined this patient.: Yes I have fully participated in the care of the patient.: Yes I have reviewed all pertinent clinical information: Yes
[2017-06-09 12:51] VITALS: BP 156/99; PULSE 79; TEMP 97.8; O2SAT 96
--- NOTE | 2017-06-09 13:34 | CT ---
PROCEDURE: CT HEAD WITHOUT CONTRAST. HISTORY: FH of brain tumor < 60 yo COMPARISON: 04/10/2013 TECHNIQUE: Axial computed tomography images were obtained through the head/brain without intravenous contrast. Radiation dose: Total exam DLP = 873 mGy-cm. This CT exam was performed using one or more of the following dose reduction techniques: Automated exposure control, adjustment of the mA and/or kV according to patient size, and/or use of iterative reconstruction technique. FINDINGS: HEMORRHAGE: No intracranial hemorrhage. BRAIN: No mass effect or edema. No atrophy or chronic microvascular ischemic changes. VENTRICLES: Unremarkable. No hydrocephalus. CALVARIUM: Unremarkable. PARANASAL SINUSES: Unremarkable as visualized. No significant inflammatory changes. MASTOID AIR CELLS: Unremarkable as visualized. No inflammatory changes. OTHER FINDINGS: None. IMPRESSION: Negative study
--- NOTE | 2017-06-09 20:17 | CARD ---
APPROVED REPORT Protocol: BAUDILIO Test Type: Sestamibi Stress Test Attending Physician: Dr. Cristian Vu Referring Physician: Dr. Heidi Valadez Test Indications: Dyspnea Height:5 ft 2 in Weight:192lbs Medications: Lexapro, Synthroid, Zestril Medical History: 72 y/o female with a histroy of htn, hypothyroidism, breast cancer, dyspnea on exertion Target HR: 148 bpm Resting ECG: RBBB w LAHB Resting Heart Rate: 88 bpm Resting Blood Pressure: 160/92mmHg Submaximum (85%): 126 bpm POST EXERCISE Reason for Termination: Dyspnea Target HR: No Max HR: 137 bpm 92% of Maximum Predicted HR: 148 bpm Exercise duration: 04:08 min:sec, 3 Stage Exercise capacity: 8.5METs Max Blood Pressure: 170/80mmHg Blood Pressure response to exercise: normal resting BP - appropriate response Heart Rate response to exercise: appropriate Chest Pain: No, none Angina index: 0 Arrhythmia: No, none ST Change: No, none Deviation: 0 mm TEST SUMMARY [id number]/.0. [id number]/92.0. EXERCISESTAGE 101:[id number]/.1. EXERCISESTAGE 202:[id number]/.0. EXERCISESTAGE 301:[id number]/92.0. [id number]/80.0. INTERPRETATION Stress EKG Conclusion: No evidence for ischemia....nuclear results pending. Signed by Cristian Vu Electronically Approved: 06/09/2017 12:08:27 EXAM: Myocardial Perfusion REST/STRESS Stress Test Type: Exercise Treadmill Imaging Protocol Rest Spect myocardial perfusion imaging was performed in supine position 45 minutes following the injection of 10.2 mCi of Tc-99 Myoview. At peak stress, the patient was injected intravenously with 30.9mCi of Tc-99 tetrofosmin after an exercise time of 4 minutes and 08 seconds. Gated Stress Spect was performed 65 minutes after intravenous Tc-99 Myoview injection. The images were gated to evaluate regional wall motion and calculate ventricular ejection fraction.Images were reconstructed using backfilter projection method in short horizontal and verticle long axis. Spect slices were generated. LV Perfusion The quality of the study is good. The left ventricle is normal in size. The right ventricle is unremarkable. The lung uptake is within normal limits. The distribution of tracer reveals normal uptake pattern throughout the LV myocardium on the stress study. The rest myocardial perfusion study shows no significant change. Wall Motion Wall motion study shows good contractility of the left ventricle. LVEF = 85%. Conclusion 1. Normal SPECT myocardial perfusion study. 2. Normal gated wall motion of the left ventricle.
== END 2017-06-09 16:41 | disposition home or self-care (01) ==
LOC: ED 08:44 → ERH 14:30 → 3RSO 18:41 → 5RSO 06-09 13:51
PROVIDERS: ADMIT Internal Medicine; ATTEND Internal Medicine
DX: R06.09 Other forms of dyspnea (principal); E03.9 Hypothyroidism, unspecified; E66.9 Obesity, unspecified; I10 Essential (primary) hypertension; K21.9 Gastro-esophageal reflux disease without esophagitis; R79.1 Abnormal coagulation profile; Z91.81 History of falling; Z79.82 Long term (current) use of aspirin; Z79.899 Other long term (current) drug therapy; Z85.3 Personal history of malignant neoplasm of breast; Z90.49 Acquired absence of other specified parts of digestive tract; R40.2412 Glasgow coma scale score 13-15, at arrival to emergency department; Z88.0 Allergy status to penicillin; Z68.35 Body mass index [BMI] 35.0-35.9, adult
CPT/HCPCS: 70450; 71045; 71275; 73610; 78452; 80053; 81003; 82550; 83615; 83880; 84436; 84443; 84479; 84484; 85025; 85378; 85610; 85730; 87804; 93005; 93017; 93306; 93970; 96360; 99285; A9502; G0378; J7040; Q9967

== ENCOUNTER 2017-10-25 07:25 | Emergency (ER) | payer OTHER ==
[2017-10-25 07:26] VITALS: BMI 35.1
[2017-10-25 07:54] VITALS: RESP 18; TEMP 97.9
--- NOTE | 2017-10-25 07:57 | ED PDOC ---
Arrival/HPI - General Historian: Patient - History of Present Illness Time/Duration: 1-3 hours Severity Level: 2 <Chad Mendez - Last Filed: 10/25/17 09:01> <Joe Black - Last Filed: 10/25/17 09:08> - General Chief Complaint: GI Problem Time Seen by Provider: 10/25/17 07:34 - History of Present Illness Narrative History of Present Illness (Text): 72 year old female with PMH of GERD, hypertension, Breast CA, Hypothyroidism, depression presents after seeing blood on toilet paper this morning while using the restroom. Patient states she had diarrhea yesterday and took pepto bismol, this AM had another episode of diarrhea after breakfast. Stool was loose and dark, as she wiped with toilet paper she saw some blood and panicked. Patient has had colonoscopy and endoscopy done [address] Bae which was normal other than some hemorrhoids. Patient denies chest pain, dizziness, shortness of breath, abdominal pain, nausea, or any other complaints at this time. 10/25/17 07:48 (Chad Mendez) Past Medical History - Provider Review Nursing Documentation Reviewed: Yes - Infectious Disease Hx of Infectious Diseases: None - Tetanus Immunization Tetanus Immunization: Unknown - Cardiac Hx Cardiac Disorders: Yes Hx Hypertension: Yes - Pulmonary Hx Respiratory Disorders: No - Neurological Hx Neurological Disorder: Yes Hx Dizziness: Yes (VERTIGO) - HEENT Hx HEENT Disorder: No - Renal Hx Kidney Stones: Yes - Endocrine/Metabolic Hx Endocrine Disorders: Yes Hx Hypothyroidism: Yes - Hematological/Oncological Hx Blood Disorders: Yes (RIGHT BREAST CA WITH LUMPECTOMY-HAD RADIATION X 30 ROUNDS.) - Integumentary Hx Dermatological Disorder: No - Musculoskeletal/Rheumatological Hx Musculoskeletal Disorders: Yes (MENISCAL TEAR,LUMBAR RADICULOPATHY) Hx Back Pain: Yes Hx Falls: Yes (fell last week,in the snow.Slipped and fell.) - Gastrointestinal Hx Gastrointestinal Disorders: Yes Hx Gall Bladder Disease: Yes (CHOLECYSTECTOMY) Hx Gastroesophageal Reflux: Yes Hx Hemorrhoids: Yes - Genitourinary/Gynecological Hx Genitourinary Disorders: No - Psychiatric Hx Psychophysiologic Disorder: Yes Hx Anxiety: Yes Hx Depression: Yes Hx Substance Use: No - Surgical History Hx Cholecystectomy: Yes Other/Comment: Lumpectomy right breast,. Facial Surgery for lift - Anesthesia Hx Anesthesia: Yes Hx Anesthesia Reactions: Yes Hx Malignant Hyperthermia: No - Suicidal Assessment Feels Threatened In Home Enviroment: No <Chad Mendez - Last Filed: 10/25/17 09:01> Family/Social History - Physician Review Nursing Documentation Reviewed: Yes Family/Social History: Neoplasm/Cancer Smoking Status: Never Smoked Hx Alcohol Use: No Hx Substance Use: No Hx Substance Use Treatment: No <Chad Mendez - Last Filed: 10/25/17 09:01> Allergies/Home Meds <Chad Mendez - Last Filed: 10/25/17 09:01> <Joe Black - Last Filed: 10/25/17 09:08> Allergies/Adverse Reactions: Allergies Penicillins Allergy (Mild, Verified 10/25/17 07:42) RASH Home Medications: Home Meds Medication Instructions Recorded Confirmed Escitalopram [Lexapro] 10 mg PO DAILY 02/21/17 10/25/17 Gluc/Alex-MSM#2/C/D3/Abdoulaye/Born 1 tab PO DAILY 02/21/17 10/25/17 [Wnxjbugodv-Rpbpvqrzrjr-PQF Tab] Levothyroxine [Synthroid] 10 mcg PO DAILY 06/08/17 10/25/17 Lisinopril [Zestril] 10 mg PO DAILY 06/08/17 10/25/17 Multivit-Min/FA/Lycopen/Lutein 1 each PO DAILY 06/08/17 10/25/17 [Centrum Silver Tablet] Review of Systems - Review of Systems Constitutional: Normal. absent: Weight Change, Fevers, Night Sweats Eyes: Normal ENT: Normal Respiratory: Normal. absent: SOB, Cough Cardiovascular: Normal. absent: Chest Pain, Palpitations, Calf Pain Gastrointestinal: Diarrhea, Vomiting, Hematochezia. absent: Abdominal Pain Genitourinary Female: Normal. absent: Dysuria Musculoskeletal: Normal Skin: Normal Neurological: Normal. absent: Headache, Dizziness Endocrine: Normal Hemo/Lymphatic: Normal Psychiatric: Normal <Chad Mendez - Last Filed: 10/25/17 09:01> Physical Exam Vital Signs Reviewed: Yes Temperature: Afebrile Blood Pressure: Hypertensive Pulse: Regular Respiratory Rate: Normal Appearance: Positive for: Well-Appearing, Non-Toxic, Comfortable Pain Distress: None Mental Status: Positive for: Alert and Oriented X 3 - Systems Exam Head: Present: Atraumatic, Normocephalic Pupils: Present: PERRL Extroacular Muscles: Present: EOMI Conjunctiva: Present: Normal Mouth: Present: Moist Mucous Membranes Neck: Present: Normal Range of Motion Respiratory/Chest: Present: Clear to Auscultation Cardiovascular: Present: Regular Rate and Rhythm, Normal S1, S2 Abdomen: Present: Normal Bowel Sounds. No: Tenderness, Distention, Peritoneal Signs, Rebound, Guarding Rectal: Present: Occult Blood, Hemorrhoids, Normal Rectal Tone, Other (exam done by Dr. Black, metal solderer by Nurse Jyoti, ). No: Rectal Tenderness, Gross Blood, Melena, Nodule/Mass/Lesions Upper Extremity: No: Edema Lower Extremity: No: Edema Neurological: Present: GCS=15, CN II-XII Intact Skin: Present: Warm Psychiatric: Present: Alert, Oriented x 3 <Chad Mendez - Last Filed: 10/25/17 09:01> Vital Signs Temp Pulse Resp BP Pulse Ox 10/25/17 07:38 97.9 F 93 H 18 178/118 H 98 Medical Decision Making <Chad Mendez - Last Filed: 10/25/17 09:01> <Joe Black - Last Filed: 10/25/17 09:08> ED Course and Treatment: Plan -CBC, occult blood, rectal exam -reasses 10/25/17 08:00 Hgb normal, patient will be DC and to follow up with primary and GI Dr. Bae 10/25/17 09:01 (Chad Mendez) 10/25/17 09:05 72 yo female with h/o Diverticolosis and Hemorrhoids presents to the ED c/o rectal bleeding x1. No lightheadedness or dizziness. Agree with resident note. Exam: Abdomen is soft, not tender, not distended, BS x4 Rectal: Aircraft Refueller VALENTÍN Montes. + Hemorrhoid nonthrombosed, normal tone; nl color brown stool with streak of BRB; no mass Impresssion: Hemorrhoid Patient has close follow up with PMD and can make an early appointment with Dr. Bae, Gi Specialist. I explained to her in detail the importance of followup. She will make sure to make an appt. She will also return to the ED if symptoms worsen such as worsening bleeding or if she develops lightheadedness or dizziness and she was advised to return with any concern. (Joe Black) - Lab Interpretations Lab Results: 10/25/17 08:00 Lab Results 10/25/17 08:00: WBC 9.8 D, RBC 4.60, Hgb 14.8, Hct 42.5, MCV 92.4, MCH 32.2, MCHC 34.8, RDW 13.5, Plt Count 232, MPV 10.3, Gran % 79.8 H, Lymph % (Auto) 14.0 L, Thurston % (Auto) 5.0, Eos % (Auto) 0.9 L, Baso % (Auto) 0.3, Gran # 7.83 H , Lymph # (Auto) 1.4, Thurston # (Auto) 0.5, Eos # (Auto) 0.1, Baso # (Auto) 0.03 Disposition/Present on Arrival - Present on Arrival Any Indicators Present on Arrival: No History of DVT/PE: No History of Uncontrolled Diabetes: No Urinary Catheter: No History of Decub. Ulcer: No History Surgical Site Infection Following: None - Disposition Have Diagnosis and Disposition been Completed?: Yes Disposition Time: 09:02 <Chad Mendez - Last Filed: 10/25/17 09:01> - Disposition Patient Plan: Discharge <Joe Black - Last Filed: 10/25/17 09:08> - Disposition Diagnosis: Hemorrhoid Disposition: HOME/ ROUTINE Patient Problems: Current Active Problems Problem Status Onset Hemorrhoid Acute Condition: GOOD Discharge Instructions (ExitCare): Diverticulosis, Hemorrhoids (DC) Additional Instructions: ZULEYMA MAHAN, thank you for letting us take care of you today. Your provider was Joe Black DO and you were treated for Hemorrhoid, Lower GI bleeding. The emergency medical care you received today was directed at your acute symptoms. If you were prescribed any medication, please fill it and take as directed. It may take several days for your symptoms to resolve. Return to the Emergency Department if your symptoms worsen, do not improve, or if you have any other problems. Please make an appointment to follow up with Dr. Bae GI. Return if bleeding worses or any other concern. Please contact your doctor or call one of the physicians/clinics you have been referred to that are listed on the Patient Visit Information form that is included in your discharge packet. Bring any paperwork you were given at discharge with you along with any medications you are taking to your follow up visit. Our treatment cannot replace ongoing medical care by a primary care provider outside of the emergency department. Thank you for allowing the [facility] team to be part of your care today. If you had an X-Ray or CT scan: A Radiologist will review the ED reading if any change in treatment is needed we will contact you. If you had a blood, urine, or wound culture: It will take several days for the results, if any change in treatment is needed we will contact you. If you had an STI test: It will take 48 hours for the results. Please call after 1 week if you have not heard back. [facility] Employee Regarding your Work Related Injury, you are instructed to do all of the following by next day: 1. Notify [facility] Employee Health Department of the sustained injury and arrange for any follow-up appointments if needed during the next business day. If the office is closed or no answer is received, please leave a detailed voice message. Message should include your full name, department and development manager, date of injury, date of ED visit if applicable. Employee Health can be reached at [phone]. 2. If there is time lost, notify [facility] Human Resources Department of the work related injury the next business day at [phone]. Referrals: Heidi Valadez MD [Primary Care Provider] - Follow up with primary Lucio Bae MD [Staff Provider] - Follow up with primary Forms: Snaps (Polish), WORK NOTE
[2017-10-25 08:34] LABS: BASO # 0.03 K/mm3 (0.0-2.0); BASO % 0.3 % (0.0-3.0); EOS # 0.1 (0.0-0.7); EOS % 0.9 % (1.5-5.0); GRAN # 7.83 (1.4-6.5); GRAN % 79.8 % (50.0-68.0); HEMOGLOBIN 14.8 g/dL (12.0-16.0); LYMPH # 1.4 (1.2-3.4); MEAN CELL VOLUME 92.4 fl (80.0-105.0); MEAN CORPUSCULAR HEMOGLOBIN 32.2 pg (25.0-35.0); MEAN CORPUSCULAR HGB CONC 34.8 g/dl (31.0-37.0); MEAN PLATELET VOLUME 10.3 fl (7.0-11.0); MONO # 0.5 (0.1-0.6); RBC 4.6 10^6/uL (3.5-6.1); RED CELL DISTRIBUTION WIDTH 13.5 % (11.5-14.5); WHITE BLOOD COUNT 9.8 10^3/ul (4.5-11.0)
[2017-10-25 09:30] VITALS: BP 125/80; PULSE 80; O2SAT 99
== END 2017-10-25 09:31 | disposition home or self-care (01) ==
LOC: ED 07:25
DX: K64.9 Unspecified hemorrhoids (principal)

== ENCOUNTER 2018-07-26 07:31 | Outpatient (CLI) | payer OTHER | END 2018-07-26 07:32 | disposition home or self-care (01) | LOC: LAB 07:31 ==

== ENCOUNTER 2018-08-30 16:39 | Outpatient (CLI) | payer OTHER | END 2018-08-30 16:40 | disposition home or self-care (01) | LOC: RAD 16:39 ==